=== PATIENT | male | born 2000 | race Caucasian/White ===

== ENCOUNTER 2022-10-15 03:33 | Emergency (ER) | payer SELFPAY ==
[2022-10-15 03:39] VITALS: TEMP 98.2
[2022-10-15] MEDS ORDERED: SODIUM CHLORIDE 0.9% 2,000 ML IV STA (04:16)
[2022-10-15] MEDS ORDERED: ONDANSETRON 4 MG/2 ML VIAL IVP STA (04:16)
[2022-10-15 04:29] LABS: ALT 33 U/L (4-49); AST 29 U/L (17-59); African American GFR (CKD) 65 (>60 ml/min/1.73 sqM); Albumin 5.9 g/dL (3.5-5.0); Alkaline Phosphatase 67 U/L (38-126); Anion Gap 23 mmol/L; Blood Urea Nitrogen 44 mg/dL (9-20); Calcium 10.9 mg/dL (8.4-10.2); Carbon Dioxide 24 mmol/L (22-30); Chloride 94 mmol/L (98-107); Glucose 120 mg/dL (74-99); Lipase 53 U/L (23-300); Non-African American GFR(CKD) 56 (>60 ml/min/1.73 sqM); Potassium 3.9 mmol/L (3.5-5.1); Sodium 141 mmol/L (137-145); Total Bilirubin 0.7 mg/dL (0.2-1.3); Total Protein 10.1 g/dL (6.3-8.2)
[2022-10-15 04:37] LABS: Basophils % (A) 0 %; Eosinophils # (A) 0.1 k/uL (0-0.7); Eosinophils % (A) 0 %; HCT 53.1 % (39.0-53.0); HGB 18.8 gm/dL (13.0-17.5); Lymphocytes # (A) 2.4 k/uL (1.0-4.8); Lymphocytes % (A) 13 %; MCH 32.3 pg (25.0-35.0); MCHC 35.3 g/dL (31.0-37.0); MCV 91.4 fL (80.0-100.0); Mean Platelet Volume 7.3; Monocytes # (A) 1.5 k/uL (0-1.0); Monocytes % (A) 8 %; Neutrophils # (A) 14.7 k/uL (1.3-7.7); Neutrophils % (A) 76 %; Platelet Count 404 k/uL (150-450); RBC 5.81 m/uL (4.30-5.90); RDW 12.9 % (11.5-15.5); WBC 19.3 k/uL (3.8-10.6)
[2022-10-15] MEDS ORDERED: KETOROLAC 15 MG/ML 1 ML VIAL IVP STA (04:48)
[2022-10-15 04:51] LABS: Appearance,Urine Cloudy (Clear); Bacteria,Urine Rare /hpf; Bilirubin,Urine 1+ (Negative); Blood,Urine Negative (Negative); Cellular Casts,Urine 10 /lpf (0); Color,Urine Light Red; Glucose,Urine (UA) Trace (Negative); Hyaline Casts,Urine 137 /lpf (0-2); Ketones,Urine 1+ (Negative); Leukocyte Esterase,Urine Negative (Negative); Mucus,Urine Few /hpf; Nitrite,Urine Negative (Negative); Protein,Urine 2+ (Negative); RBC,Urine 3 /hpf (0-5); Specific Gravity,Urine 1.031 (1.001-1.035); Urobilinogen,Urine <2.0 mg/dL (<2.0); WBC,Urine 27 /hpf (0-5)
[2022-10-15 05:01] LABS: Amphetamine Screen,Urine Not Detected (NotDetected); Barbiturate Screen,Urine Not Detected (NotDetected); Benzodiazepines Screen,Urine Not Detected (NotDetected); Cocaine Screen,Urine Not Detected (NotDetected); Methadone Screen, Urine Not Detected (NotDetected); Opiate Screen,Urine Detected (NotDetected); Oxycodone Screen, Urine Not Detected (NotDetected); Phencyclidine Screen,Urine Not Detected (NotDetected); Tricyclic Antidepressant,Urine Not Detected (NotDetected); Urn Cannabinoid Scrn Detected (NotDetected)
--- NOTE | 2022-10-15 06:40 | ED ---
General Adult HPI - General Source: patient Mode of arrival: ambulatory Limitations: no limitations <Heather Wilburn - Last Filed: 10/15/22 07:05> <Faraz Woodruff - Last Filed: 10/15/22 08:31> - General Chief complaint: Nausea/Vomiting/Diarrhea Stated complaint: Vomiting Time Seen by Provider: 10/15/22 03:40 - History of Present Illness Initial comments: 22-year-old male who presents to the emergency department reporting vomiting. States that he has been unable to hold down anything to eat or drink since yest erday morning. He denies any tainted foods. No sick contact with similar symptoms. States that he is throwing up everything that he attempts to drink. He does have right upper quadrant abdominal pain. No history of abdominal surgeries. Denies fevers and no changes in his bowel or bladder habits. Not attempted to take anything at home for his symptoms. No other alleviating, precipitating or modifying factors (Heather Wilburn) - Related Data Allergies Allergy/AdvReac Type Severity Reaction Status Date / Time No Known Allergies Allergy Verified 10/15/22 03:39 Review of Systems ROS Other: All systems not noted in ROS Statement are negative. <Heather Wilburn - Last Filed: 10/15/22 07:05> ROS Other: All systems not noted in ROS Statement are negative. <Faraz Woodruff - Last Filed: 10/15/22 08:31> ROS Statement: Those systems with pertinent positive or pertinent negative responses have been documented in the HPI. Past Medical History Past Medical History: No Reported History Past Surgical History: No Surgical Hx Reported Smoking Status: Current every day smoker Past Alcohol Use History: Occasional Past Drug Use History: Marijuana <Heather Wilburn - Last Filed: 10/15/22 07:05> General Exam Limitations: no limitations General appearance: alert, in distress, other (tearful) Head exam: Present: atraumatic, normocephalic, normal inspection Eye exam: Present: normal appearance, PERRL, EOMI. Absent: scleral icterus, conjunctival injection, periorbital swelling ENT exam: Present: normal exam, mucous membranes moist Neck exam: Present: normal inspection. Absent: tenderness, meningismus, lymphadenopathy Respiratory exam: Present: normal lung sounds bilaterally. Absent: respiratory distress, wheezes, rales, rhonchi, stridor Cardiovascular Exam: Present: normal rhythm, tachycardia, normal heart sounds. Absent: systolic murmur, diastolic murmur, rubs, gallop, clicks GI/Abdominal exam: Present: soft, tenderness (right upper quadrant), normal bowel sounds. Absent: distended, guarding, rebound, rigid Extremities exam: Present: normal inspection, full ROM, normal capillary refill. Absent: tenderness, pedal edema, joint swelling, calf tenderness Back exam: Present: normal inspection Neurological exam: Present: alert, oriented X3, CN II-XII intact Psychiatric exam: Present: normal affect, normal mood Skin exam: Present: warm, dry, intact, normal color. Absent: rash <Heather Wilburn - Last Filed: 10/15/22 07:05> Course Vital Signs 10/15/22 10/15/22 03:35 06:03 Temperature 98.2 F Pulse Rate 108 H 103 H Respiratory 16 18 Rate Blood Pressure 147/86 151/93 O2 Sat by Pulse 96 98 Oximetry Medical Decision Making - Lab Data Result diagrams: 10/15/22 04:00 10/15/22 04:00 <Heather Wilburn A - Last Filed: 10/15/22 07:05> - Lab Data Result diagrams: 10/15/22 04:00 10/15/22 04:00 <Faraz Woodruff - Last Filed: 10/15/22 08:31> - Medical Decision Making Was pt. sent in by a medical professional or institution (, PA, SALES REVIEW CLERK, urgent care, hospital, or [facility]...) When possible be specific @ -No Did you speak to anyone other than the patient for history (EMS, parent, family, police, friend...)? What history was obtained from this source @ -No Did you review nursing and triage notes (agree or disagree)? Why? @ -I reviewed and agree with nursing and triage notes Were old charts reviewed (outside hosp., previous admission, EMS record, old EKG, old radiological studies, urgent care reports/EKG's, [facility] records)? Report findings @ -No old charts were reviewed Differential Diagnosis (chest pain, altered mental status, abdominal pain women, abdominal pain men, vaginal bleeding, weakness, fever, dyspnea, syncope, headache, dizziness, GI bleed, back pain, seizure, CVA, palpatations, mental health, musculoskeletal)? @ -Differential Abdominal Pain Men: Appendicitis, cholecystitis, diverticulosis, ischemic bowel, pancreatitis, hepatitis, UTI, gastroenteritis, AAA, incarcerated hernia, bowel obstruction, constipation, inflammatory bowel, hepatitis, peptic ulcer disease, splenic infarction, perforated viscus, testicular torsion, this is not meant to be an all-inclusive list EKG interpreted by me (3pts min.). @ -Not completed X-rays interpreted by me (1pt min.). @ -None done CT interpreted by me (1pt min.). @ -None done U/S interpreted by me (1pt. min.). @ -Pending at this time What testing was considered but not performed or refused? (CT, X-rays, U/S, labs)? Why? @ -None What meds were considered but not given or refused? Why? @ -None Did you discuss the management of the patient with other professionals (professionals i.e. , PA, SALES REVIEW CLERK, lab, RT, psych nurse, transition social worker, corporation lawyer, teacher, booking officer, family service caseworker)? Give summary @ -Spoke with Dr. Woodruff who will follow up with ultrasound results Was smoking cessation discussed for >3mins.? @ -No Was critical care preformed (if so, how long)? @ -No Were there social determinants of health that impacted care today? How? (Homelessness, low income, unemployed, alcoholism, drug addiction, transportation, low edu. Level, literacy, decrease access to med. care, residential, rehab)? @ -No Was there de-escalation of care discussed even if they declined (Discuss DNR or withdrawal of care, Hospice)? DNR status @ -No What co-morbidities impacted this encounter? (DM, HTN, Smoking, COPD, CAD, Cancer, CVA, ARF, Chemo, Hep., AIDS, mental health diagnosis, sleep apnea, morbid obesity)? @ -None Was patient admitted / discharged? Hospital course, mention meds given and route, prescriptions, significant lab abnormalities, going to OR and other pertinent info. @ -Upon arrival patient is placed into room 22. A thorough history and physical exam was performed. IV is established and he is given 2 L bolus of normal saline. He is also given 4 mg of Zofran. He is reevaluated and continues to have continued symptoms. Complaining of pain and therefore is given 4 mg of Zofran. Ultrasound was performed of the Right Upper Quadrant Due to patient's COLBY. Ultrasound results are pending at this time. Spoke with Dr. Woodruff who will take over care of the patient Undiagnosed new problem with uncertain prognosis? @ -yes Drug Therapy requiring intensive monitoring for toxicity (Heparin, Nitro, Insulin, Cardizem)? @ -No Were any procedures done? @ -No Diagnosis/symptom? @ -Intractable nausea and vomiting, COLBY Acute, or Chronic, or Acute on Chronic? @ -Acute Uncomplicated (without systemic symptoms) or Complicated (systemic symptoms)? @ -Complicated Side effects of treatment? @ -No Exacerbation, Progression, or Severe Exacerbation? @ -No Poses a threat to life or bodily function? How? (Chest pain, USA, MA, pneumonia, PE, COPD, DKA, ARF, appy, cholecystitis, CVA, Diverticulitis, Homicidal, S uicidal, threat to staff... and all critical care pts) @ -No (Heather Wilburn) Patient's care is signed to me by previous shift physician, Dr. Piña. Briefly, patient 22-year-old male presents emergency Department with vomiting. vomiting is severe and intractable. He has a leukocytosis of 19.3 with signs of significant dehydration, elevated 88 renal markers. Plan at sign out was full for pending ultrasound and to determine final disposition. Patient reevaluated at 8:27 AM. Patient states he feels well. He has no abdominal pain. His nausea and vomiting is completely resolved. Patient has no symptoms whatsoever. He feels like he is back to baseline. Patient's labs and imaging studies were discussed with the patient is told that he has a l eukocytosis of 19.3 with elevated renal markers and 27 white blood cells. Is also told that he has some fluid around the gallbladder. His abdominal exam is benign. Negative Schmid sign, no pain in the right upper quadrant He is question on possible sexually transmitted disease he states that he is not sexually active. he denies any testicular or penile pain. He denies any urinary symptoms. Patient given referral for outpatient physicians. He is told to be aware that his urine should be sent out for culture with results in 2 days. Otherwise told to return to the emergency department if he has any worsening symptoms. 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 (Faraz Woodruff) - Lab Data Lab Results 10/15/22 10/15/22 10/15/22 Range/Units 04:00 04:00 04:28 WBC 19.3 H (3.8-10.6) k/uL RBC 5.81 (4.30-5.90) m/uL Hgb 18.8 H (13.0-17.5) gm/dL Hct 53.1 H (39.0-53.0) % MCV 91.4 (80.0-100.0) fL MCH 32.3 (25.0-35.0) pg MCHC 35.3 (31.0-37.0) g/dL RDW 12.9 (11.5-15.5) % Plt Count 404 (150-450) k/uL MPV 7.3 Neutrophils % 76 % Lymphocytes % 13 % Monocytes % 8 % Eosinophils % 0 % Basophils % 0 % Neutrophils # 14.7 H (1.3-7.7) k/uL Lymphocytes # 2.4 (1.0-4.8) k/uL Monocytes # 1.5 H (0-1.0) k/uL Eosinophils # 0.1 (0-0.7) k/uL Basophils # 0.0 (0-0.2) k/uL Sodium 141 (137-145) mmol/L Potassium 3.9 (3.5-5.1) mmol/L Chloride 94 L (98-107) mmol/L Carbon Dioxide 24 (22-30) mmol/L Anion Gap 23 mmol/L BUN 44 H (9-20) mg/dL Creatinine 1.69 H (0.66-1.25) mg/dL Est GFR (CKD-EPI)AfAm 65 (>60 ml/min/1.73 sqM) Est GFR (CKD-EPI)NonAf 56 (>60 ml/min/1.73 sqM) Glucose 120 H (74-99) mg/dL Calcium 10.9 H (8.4-10.2) mg/dL Total Bilirubin 0.7 (0.2-1.3) mg/dL AST 29 (17-59) U/L ALT 33 (4-49) U/L Alkaline Phosphatase 67 (38-126) U/L Total Protein 10.1 H (6.3-8.2) g/dL Albumin 5.9 H (3.5-5.0) g/dL Lipase 53 (23-300) U/L Urine Color Light Red Urine Appearance Cloudy (Clear) Urine pH 5.0 (5.0-8.0) Ur Specific [place] 1.031 (1.001-1.035) Urine Protein 2+ H (Negative) Urine Glucose (UA) Trace H (Negative) Urine Ketones 1+ H (Negative) Urine Blood Negative (Negative) Urine Nitrite Negative (Negative) Urine Bilirubin 1+ H (Negative) Urine Urobilinogen <2.0 (<2.0) mg/dL Ur Leukocyte Esterase Negative (Negative) Urine RBC 3 (0-5) /hpf Urine WBC 27 H (0-5) /hpf Urine Bacteria Rare H (None) /hpf Cellular Casts 10 (0) /lpf Hyaline Casts 137 H (0-2) /lpf Urine Mucus Few H (None) /hpf Urine Opiates Screen (NotDetected) Ur Oxycodone Screen (NotDetected) Urine Methadone Screen (NotDetected) Ur Propoxyphene Screen (NotDetected) Ur Barbiturates Screen (NotDetected) U Tricyclic Antidepress (NotDetected) Ur Phencyclidine Scrn (NotDetected) Ur Amphetamines Screen (NotDetected) U Methamphetamines Scrn (NotDetected) U Benzodiazepines Scrn (NotDetected) Urine Cocaine Screen (NotDetected) U Marijuana (THC) Screen (NotDetected) 10/15/22 Range/Units 04:28 WBC (3.8-10.6) k/uL RBC (4.30-5.90) m/uL Hgb (13.0-17.5) gm/dL Hct (39.0-53.0) % MCV (80.0-100.0) fL MCH (25.0-35.0) pg MCHC (31.0-37.0) g/dL RDW (11.5-15.5) % Plt Count (150-450) k/uL MPV Neutrophils % % Lymphocytes % % Monocytes % % Eosinophils % % Basophils % % Neutrophils # (1.3-7.7) k/uL Lymphocytes # (1.0-4.8) k/uL Monocytes # (0-1.0) k/uL Eosinophils # (0-0.7) k/uL Basophils # (0-0.2) k/uL Sodium (137-145) mmol/L Potassium (3.5-5.1) mmol/L Chloride (98-107) mmol/L Carbon Dioxide (22-30) mmol/L Anion Gap mmol/L BUN (9-20) mg/dL Creatinine (0.66-1.25) mg/dL Est GFR (CKD-EPI)AfAm (>60 ml/min/1.73 sqM) Est GFR (CKD-EPI)NonAf (>60 ml/min/1.73 sqM) Glucose (74-99) mg/dL Calcium (8.4-10.2) mg/dL Total Bilirubin (0.2-1.3) mg/dL AST (17-59) U/L ALT (4-49) U/L Alkaline Phosphatase (38-126) U/L Total Protein (6.3-8.2) g/dL Albumin (3.5-5.0) g/dL Lipase (23-300) U/L Urine Color Urine Appearance (Clear) Urine pH (5.0-8.0) Ur Specific [place] (1.001-1.035) Urine Protein (Negative) Urine Glucose (UA) (Negative) Urine Ketones (Negative) Urine Blood (Negative) Urine Nitrite (Negative) Urine Bilirubin (Negative) Urine Urobilinogen (<2.0) mg/dL Ur Leukocyte Esterase (Negative) Urine RBC (0-5) /hpf Urine WBC (0-5) /hpf Urine Bacteria (None) /hpf Cellular Casts (0) /lpf Hyaline Casts (0-2) /lpf Urine Mucus (None) /hpf Urine Opiates Screen Detected H (NotDetected) Ur Oxycodone Screen Not Detected (NotDetected) Urine Methadone Screen Not Detected (NotDetected) Ur Propoxyphene Screen Not Detected (NotDetected) Ur Barbiturates Screen Not Detected (NotDetected) U Tricyclic Antidepress Not Detected (NotDetected) Ur Phencyclidine Scrn Not Detected (NotDetected) Ur Amphetamines Screen Not Detected (NotDetected) U Methamphetamines Scrn Not Detected (NotDetected) U Benzodiazepines Scrn Not Detected (NotDetected) Urine Cocaine Screen Not Detected (NotDetected) U Marijuana (THC) Screen Detected H (NotDetected) Disposition <AkilaHeather A - Last Filed: 10/15/22 07:05> Is patient prescribed a controlled substance at d/c from ED?: No Time of Disposition: 08:31 <Faraz Woodruff - Last Filed: 10/15/22 08:31> Clinical Impression: Hyperemesis Disposition: HOME SELF-CARE Condition: Fair Instructions (If sedation given, give patient instructions): Acute Nausea and Vomiting (ED) Additional Instructions: you are advised to follow up with PCP. On today's evaluation there was some abnormal labs including elevated white blood cell count, slightly elevated renal markers and positive white blood cells in the urine. Furthermore near ultrasound there was some fluid around the gallbladder. These all may be a constellation of signs that may indicate a pathologic process. It is important that he return to the emergency Department with any worsening symptoms. Otherwise you're strongly advised to follow-up with primary care physician. Referrals: Drake Johansen MD [REFERRING] - 1-2 days Meño Jay MD [REFERRING] - 1-2 days Viji Wilder MD [STAFF PHYSICIAN] - 1-2 days Forms: Area PCPs
--- NOTE | 2022-10-15 08:10 | US ---
EXAMINATION TYPE: US gallbladder DATE OF EXAM: 10/15/2022 COMPARISON: NONE CLINICAL INDICATION: Male, 22 years old with history of pain; Pain nausea and vomiting TECHNIQUE: Multiple sonographic images of the right upper quadrant are obtained. FINDINGS: EXAM MEASUREMENTS: Liver Length: 11.6 cm Gallbladder Wall: .2 cm CBD: .4 cm Right Kidney: 9.3 x 4.7 x 3.9 cm MANAGER LIGHTING NOTES: Pancreas: Tail obscured by overlying bowel gas Liver: wnl Gallbladder: No stones seen. Pericholecystic fluid visualized. Evidence for sonographic Schmid's sign: No CBD: wnl Right Kidney: No hydronephrosis or masses seen IMPRESSION: Small amount free fluid is adjacent to the gallbladder. Consider cholecystitis.
[2022-10-15 09:05] VITALS: BP 155/69; PULSE 84; RESP 17
[2022-10-17 14:35] LABS: C. trachomatis,PCR Negative (Negative)
[2022-10-17 14:49] LABS: N. gonorrhoeae,PCR Negative (Negative)
== END 2022-10-15 09:04 | disposition home or self-care (01) ==
LOC: EC 03:33
DX: R11.2 Nausea with vomiting, unspecified (principal); N17.9 Acute kidney failure, unspecified; F17.200 Nicotine dependence, unspecified, uncomplicated; F12.90 Cannabis use, unspecified, uncomplicated
CPT/HCPCS: 36415; 80053; 83690; 85025; 81001; 87491; 87591; 80306; 76705; 99284; 96374; 96375; 96361 ×2; J2405; J1885

== ENCOUNTER 2022-10-16 09:44 | Observation (INO) | payer OTHER ==
[2022-10-16] MEDS ORDERED: SODIUM CHLORIDE 0.9% 1,000 ML IV STA ×3 (10:05→10:56)
[2022-10-16] MEDS ORDERED: KETOROLAC 15 MG/ML 1 ML VIAL IVP STA (10:05)
[2022-10-16] MEDS ORDERED: ONDANSETRON 4 MG/2 ML VIAL IVP STA (10:05)
[2022-10-16] MEDS ORDERED: HYDROmorphone 0.5 MG/0.5 ML SYRINGE IVP STA ×2 (10:07→10:46)
--- NOTE | 2022-10-16 10:13 | ED ---
Abdominal Pain HPI - General Chief Complaint: Abdominal Pain Stated Complaint: Abd pain Time Seen by Provider: 10/16/22 10:00 Source: patient, RN notes reviewed Mode of arrival: ambulatory Limitations: no limitations - History of Present Illness Initial Comments: This is a 22-year-old male who presents to the emergency department for abdominal pain. Patient was evaluated here yesterday for nausea and vomiting with right upper quadrant pain. Symptoms were controlled while he was in the emergency department and he was discharged home in stable condition. States that since going home, he feels much worse. He continues to have the pain with ongoing nausea and vomiting. Denies any fevers, chills, sore throat, cough, dyspnea, chest pain, palpitations, diarrhea, back pain, or headaches. MD Complaint: abdominal pain Location: RUQ - Related Data Home Medications Medication Instructions Recorded Confirmed Chlorhexidine Gluconate [Peridex] 15 ml PO TID PRN 10/16/22 10/16/22 HYDROcodone/APAP 5-325MG [[place] 1 tab PO Q4H PRN 10/16/22 10/16/22 5-325] Ibuprofen [Motrin] 600 mg PO Q6H PRN 10/16/22 10/16/22 Penicillin V Potassium [Pen Vee K] 500 mg PO TID 10/16/22 10/16/22 Allergies Allergy/AdvReac Type Severity Reaction Status Date / Time No Known Allergies Allergy Verified 10/16/22 12:26 Review of Systems ROS Statement: Those systems with pertinent positive or pertinent negative responses have been documented in the HPI. ROS Other: All systems not noted in ROS Statement are negative. Past Medical History Past Medical History: No Reported History History of Any Multi-Drug Resistant Organisms: None Reported Past Surgical History: No Surgical Hx Reported Past Psychological History: No Psychological Hx Reported Smoking Status: Current every day smoker Past Alcohol Use History: Occasional Past Drug Use History: Marijuana General Exam Limitations: no limitations General appearance: alert, in distress Head exam: Present: atraumatic, normocephalic, normal inspection Respiratory exam: Present: normal lung sounds bilaterally. Absent: respiratory distress, wheezes, rales, rhonchi, stridor Cardiovascular Exam: Present: regular rate, normal rhythm, normal heart sounds. Absent: systolic murmur, diastolic murmur, rubs, gallop, clicks GI/Abdominal exam: Present: soft, tenderness (RUQ), normal bowel sounds. Absent: distended Neurological exam: Present: alert, oriented X3, CN II-XII intact Psychiatric exam: Present: normal affect, normal mood Skin exam: Present: warm, dry, intact, normal color. Absent: rash Course Vital Signs 10/16/22 10/16/22 10/16/22 09:48 12:14 13:00 Temperature 97.8 F Pulse Rate 107 H 87 67 Respiratory 18 18 19 Rate Blood Pressure 156/103 139/72 139/72 O2 Sat by Pulse 99 100 96 Oximetry 10/16/22 14:00 Temperature Pulse Rate 77 Respiratory 16 Rate Blood Pressure 132/66 O2 Sat by Pulse 99 Oximetry Medical Decision Making - Medical Decision Making This is a 22-year-old male who presents to the emergency department for abdominal pain. Was pt. sent in by a medical professional or institution? @ -No Did you speak to anyone other than the patient for history? @ -No Did you review nursing and triage notes? @ -Yes, and I agree, it is accurate with regards to the patient's symptoms. Were old charts reviewed? @ -Lab work and ultrasound obtained yesterday. Lab work reveals leukocytosis with COLBY and the gallbladder ultrasound did not identify any gallstones, but did identify pericholecystic fluid, and advised correlation for cholecystitis. Differential Diagnosis? @ -Differential Abdominal Pain Men: Appendicitis, cholecystitis, diverticulosis, ischemic bowel, pancreatitis, hepatitis, UTI, gastroenteritis, AAA, incarcerated hernia, bowel obstruction, constipation, inflammatory bowel, hepatitis, peptic ulcer disease, splenic infarction, perforated viscus, testicular torsion, this is not meant to be an a ll-inclusive list EKG interpreted by me (3pts min.)? @ -Not obtained X-rays interpreted by me (1pt min.)? @ -Not obtained CT interpreted by me (1pt min.)? @ -Not obtained U/S interpreted by me (1pt. min.)? @ -Not obtained What testing was considered but not performed? (CT, X-rays, U/S, labs)? Why? @ -None What meds were considered but not given? Why? @ -None Did you discuss the management of the patient with other professionals? @ -Yes, Dr. Batista, who accepts the patient for admission. Did you reconcile home meds? @ -No Was smoking cessation discussed for >3mins.? @ -No Was critical care preformed (if so, how long)? @ -No Were there social determinants of health that impacted care today? How? (Homelessness, low income, unemployed, alcoholism, drug addiction, transportation, low edu. Level, literacy, decrease access to med. care, [facility]ci, rehab)? @ -No Was there de-escalation of care discussed even if they declined? (Discuss DNR or withdrawal of care, Hospice)? @ -No What co-morbidities impacted this encounter? (DM, HTN, Smoking, COPD, CAD, Cancer, CVA, Hep., AIDS, mental health diagnosis, sleep apnea, morbid obesity)? @ -None Was patient admitted / discharged? @ -Admitted. Lab work obtained revealing leukocytosis and elevated lactic acid. COLBY from yesterday has resolved. Upon review of imaging and blood work obtained yesterday, the ultrasound was suggestive of cholecystitis with the pericholecystic fluid identified. Given the patient's severe right upper quadrant pain with intractable nausea and vomiting, this is most likely the etiology of the patient's symptoms. Patient was started on IV Zosyn and maintenance IV fluids. 2 L bolus was also administered. Blood cultures obtained. Patient admitted to general surgery for acute cholecystitis with plan for operative intervention. Patient kept NPO until surgical time is determined. Undiagnosed new problem with uncertain prognosis? @ -None Drug Therapy requiring intensive monitoring for toxicity (Heparin, Nitro, Insulin, Cardizem)? @ -None Were any procedures done? @ -None Diagnosis/symptom? @ -Acute cholecystitis Acute, or Chronic, or Acute on Chronic? @ -Acute Uncomplicated (without systemic symptoms) or Complicated (systemic symptoms)? @ -Uncomplicated Side effects of treatment? @ -None Exacerbation, Progression, or Severe Exacerbation] @ -Not applicable Poses a threat to life or bodily function? @ -Yes This case was discussed in detail with the attending ED physician, Dr. Champion. Presentation, findings, and treatment plan discussed in detail as well. - Lab Data Result diagrams: 10/16/22 10:07 10/16/22 10:07 Lab Results 10/16/22 10/16/22 10/16/22 Range/Units 10:07 10:07 10:07 WBC 14.0 H (3.8-10.6) k/uL RBC 5.78 (4.30-5.90) m/uL Hgb 18.9 H (13.0-17.5) gm/dL Hct 52.3 (39.0-53.0) % MCV 90.4 (80.0-100.0) fL MCH 32.8 (25.0-35.0) pg MCHC 36.2 (31.0-37.0) g/dL RDW 12.2 (11.5-15.5) % Plt Count 387 (150-450) k/uL MPV 7.2 Neutrophils % 73 % Lymphocytes % 19 % Monocytes % 6 % Eosinophils % 1 % Basophils % 0 % Neutrophils # 10.2 H (1.3-7.7) k/uL Lymphocytes # 2.6 (1.0-4.8) k/uL Monocytes # 0.8 (0-1.0) k/uL Eosinophils # 0.1 (0-0.7) k/uL Basophils # 0.0 (0-0.2) k/uL Sodium 137 (137-145) mmol/L Potassium 4.1 (3.5-5.1) mmol/L Chloride 93 L (98-107) mmol/L Carbon Dioxide 23 (22-30) mmol/L Anion Gap 21 mmol/L BUN 36 H (9-20) mg/dL Creatinine 1.10 (0.66-1.25) mg/dL Est GFR (CKD-EPI)AfAm >90 (>60 ml/min/1.73 sqM) Est GFR (CKD-EPI)NonAf >90 (>60 ml/min/1.73 sqM) Glucose 118 H (74-99) mg/dL Lactic Ac Sepsis Rflx Plasma Lactic Acid Vahid 2.5 H* (0.7-2.0) mmol/L Calcium 11.1 H (8.4-10.2) mg/dL Total Bilirubin 1.2 (0.2-1.3) mg/dL AST 39 (17-59) U/L ALT 37 (4-49) U/L Alkaline Phosphatase 79 (38-126) U/L Total Protein 10.1 H (6.3-8.2) g/dL Albumin 5.8 H (3.5-5.0) g/dL Amylase 47 (30-110) U/L Lipase 76 (23-300) U/L /09/02 Range/Units 10:42 WBC (3.8-10.6) k/uL RBC (4.30-5.90) m/uL Hgb (13.0-17.5) gm/dL Hct (39.0-53.0) % MCV (80.0-100.0) fL MCH (25.0-35.0) pg MCHC (31.0-37.0) g/dL RDW (11.5-15.5) % Plt Count (150-450) k/uL MPV Neutrophils % % Lymphocytes % % Monocytes % % Eosinophils % % Basophils % % Neutrophils # (1.3-7.7) k/uL Lymphocytes # (1.0-4.8) k/uL Monocytes # (0-1.0) k/uL Eosinophils # (0-0.7) k/uL Basophils # (0-0.2) k/uL Sodium (137-145) mmol/L Potassium (3.5-5.1) mmol/L Chloride (98-107) mmol/L Carbon Dioxide (22-30) mmol/L Anion Gap mmol/L BUN (9-20) mg/dL Creatinine (0.66-1.25) mg/dL Est GFR (CKD-EPI)AfAm (>60 ml/min/1.73 sqM) Est GFR (CKD-EPI)NonAf (>60 ml/min/1.73 sqM) Glucose (74-99) mg/dL Lactic Ac Sepsis Rflx Y Plasma Lactic Acid Vahid (0.7-2.0) mmol/L Calcium (8.4-10.2) mg/dL Total Bilirubin (0.2-1.3) mg/dL AST (17-59) U/L ALT (4-49) U/L Alkaline Phosphatase (38-126) U/L Total Protein (6.3-8.2) g/dL Albumin (3.5-5.0) g/dL Amylase (30-110) U/L Lipase (23-300) U/L - Radiology Data Radiology results: report reviewed, image reviewed Disposition Clinical Impression: Acute cholecystitis Disposition: ADMITTED IP TO THIS HOSP
[2022-10-16 10:31] LABS: Basophils % (A) 0 %; Eosinophils # (A) 0.1 k/uL (0-0.7); Eosinophils % (A) 1 %; HCT 52.3 % (39.0-53.0); HGB 18.9 gm/dL (13.0-17.5); Lymphocytes # (A) 2.6 k/uL (1.0-4.8); Lymphocytes % (A) 19 %; MCH 32.8 pg (25.0-35.0); MCHC 36.2 g/dL (31.0-37.0); MCV 90.4 fL (80.0-100.0); Mean Platelet Volume 7.2; Monocytes # (A) 0.8 k/uL (0-1.0); Monocytes % (A) 6 %; Neutrophils # (A) 10.2 k/uL (1.3-7.7); Neutrophils % (A) 73 %; Platelet Count 387 k/uL (150-450); RBC 5.78 m/uL (4.30-5.90); RDW 12.2 % (11.5-15.5)
[2022-10-16 10:40] LABS: ALT 37 U/L (4-49); AST 39 U/L (17-59); African American GFR (CKD) >90 (>60 ml/min/1.73 sqM); Albumin 5.8 g/dL (3.5-5.0); Alkaline Phosphatase 79 U/L (38-126); Amylase 47 U/L (30-110); Anion Gap 21 mmol/L; Blood Urea Nitrogen 36 mg/dL (9-20); Calcium 11.1 mg/dL (8.4-10.2); Carbon Dioxide 23 mmol/L (22-30); Chloride 93 mmol/L (98-107); Glucose 118 mg/dL (74-99); Lipase 76 U/L (23-300); Non-African American GFR(CKD) >90 (>60 ml/min/1.73 sqM); Potassium 4.1 mmol/L (3.5-5.1); Sodium 137 mmol/L (137-145); Total Bilirubin 1.2 mg/dL (0.2-1.3); Total Protein 10.1 g/dL (6.3-8.2)
[2022-10-16] MEDS ORDERED: NALOXONE 0.4 MG/ML 1 ML VIAL IV PRN (10:57)
[2022-10-16] MEDS ORDERED: ACETAMINOPHEN TAB 325 MG TAB PO PRN (10:57)
[2022-10-16] MEDS ORDERED: HYDROmorphone 0.5 MG/0.5 ML SYRINGE IVP PRN (10:57)
[2022-10-16] MEDS ORDERED: METOCLOPRAMIDE 5 MG/ML 2 ML VIAL IVP STA (11:00)
[2022-10-16] MEDS ORDERED: PIPERACILLIN-TAZOBACTAM 3.375 GM in SODIUM CHLORIDE 0.9% 100 ML IVPB SCH (11:00)
[2022-10-16] MEDS ORDERED: PIPERACILLIN-TAZOBACTAM 3.375 GM in SODIUM CHLORIDE 0.9% 100 ML IVPB ONE (11:30)
--- NOTE | 2022-10-16 13:16 | P.GSHP ---
History of Present Illness H&P Date: 10/16/22 Reports moderate to severe right upper quadrant pain that started 2 days ago, Monday. He does not recall what he ate. He did present to the ER 2 days ago but returns today due to recurrent intractable abdominal pain US reviewed demonstrating fluid around gallbladder US report demonstrates acute cholecystitis Admission for cholecystitis and cholecystectomy reviewed Patient reports grandmother also had her gallbladder removed. Past Medical History Past Medical History: No Reported History History of Any Multi-Drug Resistant Organisms: None Reported Past Surgical History: No Surgical Hx Reported Past Psychological History: No Psychological Hx Reported Smoking Status: Current every day smoker Past Alcohol Use History: Occasional Past Drug Use History: Marijuana Medications and Allergies Home Medications Medication Instructions Recorded Confirmed Type Chlorhexidine Gluconate [Peridex] 15 ml PO TID PRN 10/16/22 10/16/22 History HYDROcodone/APAP 5-325MG [Romulus 1 tab PO Q4H PRN 10/16/22 10/16/22 History 5-325] Ibuprofen [Motrin] 600 mg PO Q6H PRN 10/16/22 10/16/22 History Penicillin V Potassium [Pen Vee K] 500 mg PO TID 10/16/22 10/16/22 History Allergies Allergy/AdvReac Type Severity Reaction Status Date / Time No Known Allergies Allergy Verified 10/16/22 12:26 Surgical - Exam Vital Signs Temp Pulse Resp BP Pulse Ox 97.8 F 107 H 18 156/103 99 10/16/22 09:48 10/16/22 09:48 10/16/22 09:48 10/16/22 09:48 10/16/22 09:48 Results - Labs 10/16/22 10:07 10/16/22 10:07 Abnormal Lab Results - Last 24 Hours (Table) 10/16/22 10/16/22 10/16/22 Range/Units 10:07 10:07 10:07 WBC 14.0 H (3.8-10.6) k/uL Hgb 18.9 H (13.0-17.5) gm/dL Neutrophils # 10.2 H (1.3-7.7) k/uL Chloride 93 L (98-107) mmol/L BUN 36 H (9-20) mg/dL Glucose 118 H (74-99) mg/dL Plasma Lactic Acid Vahid 2.5 H* (0.7-2.0) mmol/L Calcium 11.1 H (8.4-10.2) mg/dL Total Protein 10.1 H (6.3-8.2) g/dL Albumin 5.8 H (3.5-5.0) g/dL Diabetes panel 10/16/22 Range/Units 10:07 Sodium 137 (137-145) mmol/L Potassium 4.1 (3.5-5.1) mmol/L Chloride 93 L (98-107) mmol/L Carbon Dioxide 23 (22-30) mmol/L BUN 36 H (9-20) mg/dL Creatinine 1.10 (0.66-1.25) mg/dL Glucose 118 H (74-99) mg/dL Calcium 11.1 H (8.4-10.2) mg/dL AST 39 (17-59) U/L ALT 37 (4-49) U/L Alkaline Phosphatase 79 (38-126) U/L Total Protein 10.1 H (6.3-8.2) g/dL Albumin 5.8 H (3.5-5.0) g/dL Calcium panel 10/16/22 Range/Units 10:07 Calcium 11.1 H (8.4-10.2) mg/dL Albumin 5.8 H (3.5-5.0) g/dL Pituitary panel 10/16/22 Range/Units 10:07 Sodium 137 (137-145) mmol/L Potassium 4.1 (3.5-5.1) mmol/L Chloride 93 L (98-107) mmol/L Carbon Dioxide 23 (22-30) mmol/L BUN 36 H (9-20) mg/dL Creatinine 1.10 (0.66-1.25) mg/dL Glucose 118 H (74-99) mg/dL Calcium 11.1 H (8.4-10.2) mg/dL Adrenal panel 10/16/22 Range/Units 10:07 Sodium 137 (137-145) mmol/L Potassium 4.1 (3.5-5.1) mmol/L Chloride 93 L (98-107) mmol/L Carbon Dioxide 23 (22-30) mmol/L BUN 36 H (9-20) mg/dL Creatinine 1.10 (0.66-1.25) mg/dL Glucose 118 H (74-99) mg/dL Calcium 11.1 H (8.4-10.2) mg/dL Total Bilirubin 1.2 (0.2-1.3) mg/dL AST 39 (17-59) U/L ALT 37 (4-49) U/L Alkaline Phosphatase 79 (38-126) U/L Total Protein 10.1 H (6.3-8.2) g/dL Albumin 5.8 H (3.5-5.0) g/dL
[2022-10-16] MEDS: ONDANSETRON 4 MG/2 ML VIAL IVP PRN ×2 (15:43→22:50)
[2022-10-16] MEDS: PIPERACILLIN-TAZOBACTAM 3.375 GM in SODIUM CHLORIDE 0.9% 100 ML IVPB SCH (18:28)
[2022-10-17] MEDS: PIPERACILLIN-TAZOBACTAM 3.375 GM in SODIUM CHLORIDE 0.9% 100 ML IVPB SCH ×3 (02:29→17:42)
[2022-10-17] MEDS: HYDROmorphone 1 MG/ML 1 ML SYRINGE IVP PRN ×3 (02:46→23:29)
[2022-10-17] MEDS: ONDANSETRON 4 MG/2 ML VIAL IVP PRN (06:34)
[2022-10-17] MEDS ORDERED: INDOCYANINE GREEN 25 MG VIAL IV STA (06:56)
[2022-10-17] MEDS ORDERED: HEPARIN SODIUM,PORCINE/PF 5,000 UNIT/0.5 ML SYRINGE SQ PRN (06:56)
[2022-10-17] MEDS ORDERED: SODIUM CHLORIDE 0.9% 2,000 ML IV ONE (07:58)
[2022-10-17] MEDS ORDERED: SODIUM CHLORIDE 0.9% 1,000 ML IV ONE (09:36)
[2022-10-17] MEDS ORDERED: DEXAMETHASONE SOD PHOSPHATE 4 MG/ML 1 ML VIAL IVP ONE (09:53)
[2022-10-17] MEDS ORDERED: MIDAZOLAM 2 MG/2 ML VIAL ONE (09:59)
[2022-10-17] MEDS ORDERED: ROCURONIUM 10 MG/ML (5 ML VIAL) IV ONE (09:59)
[2022-10-17] MEDS ORDERED: fentaNYL (PF) 50 MCG/ML 2 ML AMP ONE (09:59)
[2022-10-17] MEDS ORDERED: KETOROLAC 15 MG/ML 1 ML VIAL ONE (09:59)
[2022-10-17] MEDS ORDERED: LIDOCAINE 2% INJ 20 MG/ML (2 ML VIAL) ONE (09:59)
[2022-10-17] MEDS ORDERED: HYDROmorphone (PF) 1 MG/ML ONE (09:59)
[2022-10-17] MEDS ORDERED: PROPOFOL 10 MG/ML 20 ML VIAL IV ONE (09:59)
[2022-10-17] MEDS ORDERED: GLYCOPYRROLATE 0.2 MG/ML 2 ML VIAL ONE (09:59)
[2022-10-17] MEDS ORDERED: SUCCINYLCHOLINE CHLORIDE 200 MG/10 ML VIAL IV ONE (09:59)
[2022-10-17] MEDS ORDERED: LIDOCAINE 4% LTA KIT (4 ML) TOPICAL ONE (09:59)
[2022-10-17] MEDS ORDERED: NEOSTIGMINE 1 MG/ML 10 ML VIAL ONE (09:59)
[2022-10-17] MEDS ORDERED: KETAMINE 10 MG/ML 20 ML VIAL ONE (09:59)
[2022-10-17] MEDS ORDERED: BUPIVACAINE (PF) 0.25% 30 ML VIAL SQ ONE ×2 (10:27→10:31)
[2022-10-17] MEDS ORDERED: LACTATED RINGERS 1,000 ML IV ONE (10:39)
--- NOTE | 2022-10-17 11:33 | P.OP ---
Date of Procedure: 10/17/22 Description of Procedure: SURGEON: BOB AUGUSTE MD PREOPERATIVE DIAGNOSES: 1. Acute cholecystitis 2. Intractable right upper quadrant abdominal pain 3. Tobacco abuse disorder 4. Obesity due to excess calories, BMI 31.4 POSTOPERATIVE DIAGNOSES: 1. Acute cholecystitis with chronic cholecystitis 2. Intractable right upper quadrant abdominal pain 3. Tobacco abuse disorder 4. Obesity due to excess calories, BMI 31.4 OPERATION: Robotic-assisted da Maikel Xi laparoscopic cholecystectomy, multiport with FIREFLY ESTIMATED BLOOD LOSS: 10 mL. SPECIMENS REMOVED: Gallbladder. COMPLICATIONS: None. OPERATIVE FINDINGS: 1. Prominent fold of the gallbladder with contour anomaly contributing to chronic cholecystitis INDICATIONS: The patient is a 22-year-old male who presents with symptomatic gallstones. Robotic assisted laparoscopic approach was described. Benefits and risks of the procedure including but not limited to bleeding, infection, injury to the biliary tree was described. Informed consent was obtained. DESCRIPTION OF PROCEDURE: Patient was brought to the operating room, placed in supine position. After general induction, the abdomen had been prepped and draped in standard sterile fashion. The robotic da Maikel XI system was primed. After a timeout protocol was performed, the patient had been prepped and draped in standard sterile fashion. The patient was injected with indocyanine green. A 5 mm 0 degrees laparoscopic trocar entry was performed along the left upper quadrant. The abdomen insufflated to 15 mmHg pressure which was tolerated well. Diagnostic laparoscopy demonstrated no injury to bowel viscera or mesentery. The gallbladder was folded onto itself with abnormal contour contributing to cholecystitis. The liver surface was unremarkable. Next, two 8 mm robotic ports were placed along the right upper abdomen. The camera 8-mm port was maintained along the epigastrium. Another 12 mm port was placed along the left upper abdominal wall after exchanging the 5 mm port. Please note that the ports were placed at least 10 to 15 cm away from the target anatomy of the gallbladder. The robot was docked along the left lateral abdomen. The patient was repositioned in reverse Trendelenburg position. Using a grasper for arm 3, a grasper for arm 4, including hook cautery for arm 1, the robotic system was docked and primed as described. Instruments were interchanged by the assistant professor of history including hook cautery, Bovie cautery and clip appliers. I had sat at the console. Next attention was brought to the infundibulum and cystic structures. The infundibulum and cystic duct were dissected free from surrounding tissues. The cystic duct was isolated. FIREFLY was used to identify the cystic artery and cystic structures. A critical view of safety was obtained. Large PLASTIC clips were used throughout the entire case. Using a clip ocean rescue lieutenant, 2 clips were placed at the junction of the infundibulum and cystic duct. The cystic duct was divided between clips. Next, the cystic artery was similarly clipped and cauterized. Electro-Bovie cautery was used to remove the gallbladder from the hepatic fossa. Hemostasis was checked and found to be adequate. The robot was undocked. I re-scrubbed into the case. Using a 10 mm Endo Catch bag via the left upper quadrant incision, the specimen was removed from the abdominal cavity. All pneumoperitoneum instruments were evacuated from the abdominal cavity. The incisions were reapproximated using 4-0 Monocryl in an interrupted subcuticular fashion. Fascial defects were less than 8 mm in size. Please note along the trocar sites, local anesthetic was placed as a field block prior to insertion of all instruments. Liquid glue was applied to the skin. At the end of the procedure needle, sponge, and instrument count had been verified correct by the surgical garment fitter. The patient was transferred to postanesthesia care unit in stable condition.
[2022-10-17] MEDS ORDERED: NALOXONE 0.4 MG/ML 1 ML VIAL IV PRN (11:34)
[2022-10-17] MEDS: KETOROLAC 15 MG/ML 1 ML VIAL IVP SCH ×3 (13:19→22:58)
[2022-10-17] MEDS: ACETAMINOPHEN TAB 500 MG TAB PO SCH ×3 (13:20→22:57)
[2022-10-17] MEDS: SODIUM CHLORIDE 0.9% 1,000 ML IV SCH (17:43)
[2022-10-17] MEDS: SIMETHICONE 80 MG CHEWABLE PO SCH ×4 (17:43→22:59)
[2022-10-18] MEDS: PIPERACILLIN-TAZOBACTAM 3.375 GM in SODIUM CHLORIDE 0.9% 100 ML IVPB SCH ×3 (02:02→17:24)
[2022-10-18] MEDS: SODIUM CHLORIDE 0.9% 1,000 ML IV SCH ×4 (02:03→21:38)
[2022-10-18] MEDS: HYDROmorphone 1 MG/ML 1 ML SYRINGE IVP PRN ×3 (06:58→18:02)
[2022-10-18] MEDS: KETOROLAC 15 MG/ML 1 ML VIAL IVP SCH ×3 (07:38→17:23)
[2022-10-18] MEDS: ONDANSETRON 4 MG/2 ML VIAL IVP PRN ×2 (07:38→18:01)
[2022-10-18] MEDS: SIMETHICONE 80 MG CHEWABLE PO SCH ×3 (07:41→20:59)
[2022-10-18] MEDS ORDERED: SCOPOLAMINE 1 MG/72 HR PATCH TRANSDERM STA (08:09)
[2022-10-18] MEDS: METOCLOPRAMIDE 5 MG/ML 2 ML VIAL IVP SCH ×3 (08:37→20:56)
[2022-10-18] MEDS: ACETAMINOPHEN TAB 500 MG TAB PO SCH ×3 (09:47→17:24)
--- NOTE | 2022-10-18 14:49 | P.PN ---
Subjective Progress Note Date: 10/18/22 CHIEF COMPLAINT: Cholecystitis HISTORY OF PRESENT ILLNESS: Patient is status post robotic-assisted laparoscopic cholecystectomy, postop day #1. Patient had nausea and vomiting last night and this morning. Scopolamine patch was added. Patient reports a decreased appetite. And does not want to try the lasagna for lunch. Afebrile. Labs for today are pending PHYSICAL EXAM: VITAL SIGNS: Reviewed GENERAL: Well-developed in no acute distress. HEENT: No sclera icterus. Extraocular movements grossly intact. Moist buccal mucosa. Head is atraumatic, normocephalic. Hears conversational speech. No nasal drainage. NECK: Supple without lymphadenopathy. CHEST: Non-labored respirations and equal bilateral excursions. CARDIOVASCULAR: Palpable 2+ radial pulses. ABDOMEN: Soft. Nondistended. Incision sites clean dry and intact MUSCULOSKELETAL: No clubbing or cyanosis. NEUROLOGIC: No focal or lateralizing signs. Cranial nerves II through XII grossly intact. PSYCH: Appropriate affect. Alert and oriented to person, place and time. SKIN: Well perfused. Good skin turgor. ASSESSMENT: 1. Acute cholecystitis with chronic cholecystitis 2. Intractable right upper quadrant abdominal pain 3. Tobacco abuse disorder 4. Obesity due to excess calories, BMI 31.4 PLAN: -Downgrade diet to full liquids -Continue antiemetics plus scopolamine patch -Repeat labs in a.m. -Encouraged patient ambulates -Continue pain management -Continue IV fluids -DVT prophylaxis Loveclaudiax Physician Aircraft Metalsmith note has been reviewed by physician. Signing provider agrees with the documented findings, assessment, and plan of care. Objective - Vital Signs Vital signs: Vital Signs Temp 97.6 F 10/18/22 07:49 Pulse 57 L 10/18/22 07:49 Resp 18 10/18/22 07:49 BP 151/90 10/18/22 07:49 Pulse Ox 98 10/18/22 07:49 FiO2 Intake & Output 10/17/22 10/18/22 10/18/22 18:59 06:59 18:59 Intake Total 4490 Output Total 10 Balance 4480 Intake: IV 1250 Intake, IV Titration 2390 Amount Sodium Chloride 0.9% 1, 390 000 ml @ 130 mls/hr IV . Q7H42M [facility] Rx#:[id number] Sodium Chloride 0.9% 2, 2000 000 ml @ 999 mls/hr IV . Q2H1M [facility] Rx#:[id number] Oral 850 Output: Estimated Blood Loss 10 Other: Voiding Method Toilet Toilet Toilet # Voids 1 2 # Emeses 1 - Labs CBC & Chem 7: 10/16/22 10:07 10/16/22 10:07 Labs: Microbiology - Last 24 Hours (Table) 10/16/22 12:00 Blood Culture - Preliminary Blood 10/16/22 11:45 Blood Culture - Preliminary Blood
[2022-10-18 15:31] LABS: Basophils % (A) 0 %; Eosinophils # (A) 0.1 k/uL (0-0.7); Eosinophils % (A) 1 %; HCT 42.3 % (39.0-53.0); Lymphocytes # (A) 2.1 k/uL (1.0-4.8); Lymphocytes % (A) 21 %; MCH 32.4 pg (25.0-35.0); MCV 92.5 fL (80.0-100.0); Mean Platelet Volume 7.4; Monocytes # (A) 0.8 k/uL (0-1.0); Monocytes % (A) 7 %; Neutrophils % (A) 68 %; Platelet Count 262 k/uL (150-450); RBC 4.57 m/uL (4.30-5.90); RDW 12.2 % (11.5-15.5); WBC 10.3 k/uL (3.8-10.6)
[2022-10-18 15:41] LABS: ALT 49 U/L (4-49); AST 36 U/L (17-59); African American GFR (CKD) >90 (>60 ml/min/1.73 sqM); Albumin/Globulin Ratio 1.3; Alkaline Phosphatase 52 U/L (38-126); Anion Gap 10 mmol/L; Blood Urea Nitrogen 15 mg/dL (9-20); Carbon Dioxide 23 mmol/L (22-30); Chloride 103 mmol/L (98-107); Globulin 3.1 g/dL; Glucose 104 mg/dL (74-99); Non-African American GFR(CKD) >90 (>60 ml/min/1.73 sqM); Potassium 3.4 mmol/L (3.5-5.1); Sodium 136 mmol/L (137-145); Total Bilirubin 1.2 mg/dL (0.2-1.3); Total Protein 7.1 g/dL (6.3-8.2)
[2022-10-18 15:42] LABS: HGB 14.8 gm/dL (13.0-17.5)
[2022-10-18] MEDS: ENOXAPARIN 40 MG/0.4 ML SYRINGE SQ SCH (17:23)
[2022-10-19] MEDS: HYDROmorphone 1 MG/ML 1 ML SYRINGE IVP PRN ×2 (00:47→06:22)
[2022-10-19] MEDS: SODIUM CHLORIDE 0.9% 1,000 ML IV SCH ×2 (00:49→12:55)
[2022-10-19] MEDS: ONDANSETRON 4 MG/2 ML VIAL IVP PRN ×2 (01:01→12:59)
[2022-10-19] MEDS: KETOROLAC 15 MG/ML 1 ML VIAL IVP SCH ×4 (01:01→12:59)
[2022-10-19] MEDS: ACETAMINOPHEN TAB 500 MG TAB PO SCH ×3 (01:01→11:53)
[2022-10-19] MEDS: METOCLOPRAMIDE 5 MG/ML 2 ML VIAL IVP SCH ×3 (01:50→15:48)
[2022-10-19] MEDS: PIPERACILLIN-TAZOBACTAM 3.375 GM in SODIUM CHLORIDE 0.9% 100 ML IVPB SCH ×2 (01:50→10:05)
[2022-10-19 09:36] LABS: Basophils # (A) 0.06 X 10*3/uL (0.00-0.10); Basophils % (A) 0.6 %; Eosinophils # (A) 0.07 X 10*3/uL (0.04-0.35); Eosinophils % (A) 0.7 %; HCT 42.6 % (39.6-50.0); HGB 14.9 d/dL (13.0-17.0); Lymphocytes # (A) 2.98 X 10*3/uL (0.90-5.00); Lymphocytes % (A) 29.1 %; MCH 31.6 pg (27.0-32.0); MCV 90.4 FL (80.0-97.0); Mean Platelet Volume 9.7 FL (9.5-12.2); Monocytes # (A) 0.94 X 10*3/uL (0.20-1.00); Monocytes % (A) 9.2 %; NRBC Per 100 WBC 0 X 10*3/uL (0.00-0.01); Neutrophils # (A) 6.17 X 10*3/uL (1.80-7.70); Neutrophils % (A) 60.1 %; Platelet Count 273 X 10*3/uL (140-440); RBC 4.71 X 10*6/uL (4.40-5.60); RDW 11.7 % (11.5-14.5); WBC 10.25 X 10*3/uL (4.50-10.00)
[2022-10-19 09:42] LABS: ALT 49 U/L (10-49); AST 28 U/L (14-35); Albumin 4.2 d/dL (3.8-4.9); Albumin/Globulin Ratio 1.83 Ratio (1.60-3.17); Alkaline Phosphatase 51 U/L (41-126); Calcium 9.4 mg/dL (8.7-10.3); Carbon Dioxide 24.5 mmol/L (21.6-31.8); Chloride 104 mmol/L (96-109); Globulin 2.3 d/dL (1.6-3.3); Glucose 89 mg/dL (70-110); Sodium 140 mmol/L (135-145); Total Bilirubin 0.8 mg/dL (0.3-1.2); Total Protein 6.5 d/dL (6.2-8.2)
[2022-10-19] MEDS: ENOXAPARIN 40 MG/0.4 ML SYRINGE SQ SCH (10:04)
[2022-10-19] MEDS: SIMETHICONE 80 MG CHEWABLE PO SCH ×3 (10:05→15:48)
[2022-10-19] MEDS: POTASSIUM CHLORIDE ER 20 MEQ TAB.ER PO STA ×2 (10:05→10:10)
[2022-10-19] MEDS ORDERED: SODIUM CHLORIDE 0.9% 1,000 ML IV SCH (12:00)
[2022-10-19 14:37] VITALS: BP 152/78; PULSE 65; RESP 20; TEMP 99.1
--- NOTE | 2022-10-19 16:50 | P.DS ---
Providers Date of admission: 10/16/22 11:00 Expected date of discharge: 10/19/22 Attending physician: Violette Batista Consults: 10/17/22 06:56 Consult Physician Routine Consulting Provider: [facility] Consult Reason/Comments: [facility] Do you want consulting provider notified?: Yes Primary care physician: Stated None Hospital Course: Discharge diagnosis 1. Acute cholecystitis with chronic cholecystitis 2. Intractable right upper quadrant abdominal pain 3. Tobacco abuse disorder 4. Obesity due to excess calories, BMI 31.4 5. Nausea and vomiting resolved Hospital course The patient is a 22-year-old male who presents with symptomatic gallstones. Patient status post Robotic-assisted laparoscopic cholecystectomy. Patient reports his pain is controlled. He is tolerating diet. He is afebrile. He is having flatus. He has been up and ambulating. Denies any difficulty urinating. Incision sites clean dry and intact. He is stable for discharge. Physician Housekeeping/Laundry note has been reviewed by physician. Signing provider agrees with the documented findings, assessment, and plan of care. Patient Condition at Discharge: Stable Plan - Discharge Summary Discharge Rx Participant: No New Discharge Prescriptions: New Ibuprofen [Motrin] 600 mg PO Q8HR PRN #30 tab PRN Reason: Pain Acetaminophen Tab [Tylenol] 1,000 mg PO Q6HR PRN #30 tablet PRN Reason: Pain Discontinued Ibuprofen [Motrin] 600 mg PO Q6H PRN PRN Reason: Pain Or Fever > 100.5 HYDROcodone/APAP 5-325MG [Hassell 5-325] 1 tab PO Q4H PRN PRN Reason: Pain No Action Chlorhexidine Gluconate [Peridex] 15 ml PO TID PRN PRN Reason: SOAK, THEN SPIT OUT Penicillin V Potassium [Pen Vee K] 500 mg PO TID Discharge Medication List Chlorhexidine Gluconate [Peridex] 15 ml PO TID PRN 10/16/22 [History] Penicillin V Potassium [Pen Vee K] 500 mg PO TID 10/16/22 [History] Acetaminophen Tab [Tylenol] 1,000 mg PO Q6HR PRN #30 tablet 10/19/22 [Rx] Ibuprofen [Motrin] 600 mg PO Q8HR PRN #30 tab 10/19/22 [Rx] Follow up Appointment(s)/Referral(s): None,Stated [Primary Care Provider] - 1-2 days Violette Batista MD [STAFF PHYSICIAN] - 10/25/22 Activity/Diet/Wound Care/Special Instructions: No lifting over 4 pounds in 4 weeks You May shower. No bath tub soaks for two weeks Use Tylenol and ibuprofen scheduled for the next 24-48 hours for best pain relief. Use ice along incisions for the today to prevent swelling. Continue Low fat diet Discharge Disposition: HOME SELF-CARE
== END 2022-10-19 17:11 | disposition home or self-care (01) ==
LOC: EC 09:44 → 5NMEDONC 11:00 → INTOOBSV 11:00 → 5NMEDONC 14:22 → 4SSUR 17:42
PROVIDERS: ADMIT Surgery Plastic and Reconstructive Surgery; ATTEND Surgery Plastic and Reconstructive Surgery
DX: K80.12 Calculus of gallbladder with acute and chronic cholecystitis without obstruction (principal); F17.200 Nicotine dependence, unspecified, uncomplicated; E66.09 Other obesity due to excess calories; Z68.31 Body mass index [BMI] 31.0-31.9, adult
CPT/HCPCS: 47562; S2900; 36415; 80053; 82150; 83605; 83690; 85025; 87040; 88304; 96361; 96365; 96366; 96375; 96376; 99285